=== PATIENT | female | born 1985 | race Caucasian/White ===

== ENCOUNTER 2019-10-15 07:55 | Emergency (ER) | payer OTHER ==
[~2019-10-15] VITALS: Ht 157.5 cm; Wt 55.4 kg
[2019-10-15] MEDS ORDERED: IV NORMAL SALINE 1,000ML 1,000 ML IV ONE (08:00)
--- NOTE | 2019-10-15 08:01 | PHYS DOC ---
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 Patient was recently started on Zoloft. Denies suicidal or homicidal ideation. Denies trauma. Denies . Reports increased life stressors. Review of Systems: Review of Systems: Constitutional: Denies fever or chills Eyes: Denies redness or eye pain HENT: Denies nasal congestion or sore throat Respiratory: Denies cough or shortness of breath Cardiovascular: Denies chest pain; reports palpitations GI: Denies abdominal pain, nausea, or vomiting : Denies dysuria or hematuria Musculoskeletal: Denies back pain or joint pain Integument: Denies rash or skin lesions Neurologic: Denies headache, focal weakness or sensory changes Complete systems were reviewed and found to be within normal limits, except as documented in this note. Physical Exam: PE: Constitutional: Well developed, well nourished, no acute distress, non-toxic appearance HENT: Normocephalic, atraumatic Eyes: Conjunctiva normal, no discharge Neck: Normal range of motion, no tenderness, supple Lungs & Thorax: No respiratory distress, equal chest rise and fall Abdomen: Soft, no tenderness Skin: Warm, dry, no erythema, no rash Extremities: No tenderness, ROM intact, no edema Neurologic: Alert and oriented X 3, normal motor function, normal sensory function, no focal deficits noted Psychologic: Affect anxious, judgment normal EKG: EKG: @0829 NSR at 63bpm, NO ST elevation, QRS 86ms, QT/QTc 410/423ms Radiology/Procedures: Radiology/Procedures: PROCEDURE: PORTABLE CHEST 1V PORTABLE CHEST 1V 10/15/2019 8:26 AM INDICATION: Chest discomfort COMPARISON: None available TECHNIQUE: Portable frontal view of the chest is provided. FINDINGS: The cardiomediastinal silhouette is within normal limits. Lungs are clear. There are no significant pleural effusions. There is no pulmonary vascular congestion. No pneumothorax. No suspicious osseous abnormality. IMPRESSION: There is no acute cardiopulmonary process. Electronically signed by: Nemo Reid MD (10/15/2019 8:52 AM) [facility] Course & Med Decision Making: Course & Med Decision Making Pertinent Imaging studies reviewed. (See chart for details) Patient presents with HPI and physical exam consistent for anxiety/panic attack. EKG stable. Chest x-ray without acute process. Symptomatic treatment provided. Patient stable for discharge with outpatient follow-up with PCP. Discussed findings and plan with patient, who acknowledges understanding and agreement. Dragon Disclaimer: Bria Disclaimer: This electronic medical record was generated, in whole or in part, using a voice recognition dictation system. Departure Departure: Impression: Primary Impression: Palpitations Additional Impression: Anxiety Disposition: 01 HOME/RESIDENCE PRIOR TO ADM Condition: STABLE Referrals: PCP,NO (PCP) Patient Instructions: Anxiety and Panic Attacks, [id number], Palpitations, [id number] Justification of Admission: Justification of Admission: Justification of Admission Dx: N/A ELINA RISO DO Oct 15, 2019 08:01
[2019-10-15 08:24] VITALS: BP 154/107
--- NOTE | 2019-10-15 08:43 | EKG ---
[address] [address] Test Date: 2019-10-15 Test Time: 08:29:11 Pat Name: JEANNIE SNYDER Department: Room: Gender: F [employer]: : 1985 Requested By: ELINA RIOS Order Number: [id number] Reading MD: Measurements Intervals Ray Rate: 63 P: 63 WY: 152 QRS: 55 QRSD: 86 T: 50 QT: 410 QTc: 423 Interpretive Statements SINUS RHYTHM NORMAL ECG RI6.02 No previous ECG available for comparison
[2019-10-15] MEDS: LORazepam 1 MG TABLET PO ONE (08:46)
--- NOTE | 2019-10-15 08:56 | RAD ---
PORTABLE CHEST 1V 10/15/2019 8:26 AM INDICATION: Chest discomfort COMPARISON: None available TECHNIQUE: Portable frontal view of the chest is provided. FINDINGS: The cardiomediastinal silhouette is within normal limits. Lungs are clear. There are no significant pleural effusions. There is no pulmonary vascular congestion. No pneumothorax. No suspicious osseous abnormality. IMPRESSION: There is no acute cardiopulmonary process. Electronically signed by: Nemo Reid MD (10/15/2019 8:52 AM) [facility]
== END 2019-10-15 08:56 | disposition home or self-care (01) ==
LOC: ER 07:55
DX: R00.2 Palpitations (principal); F41.9 Anxiety disorder, unspecified
CPT/HCPCS: 71045; 93005; 99283